=== PATIENT | male | born 1985 | race Caucasian/White ===

== ENCOUNTER 2021-05-28 10:17 | Emergency (ER) | payer SELFPAY ==
[2021-05-28 10:20] VITALS: BP 135/83; PULSE 106; RESP 16; TEMP 36.6; O2SAT 97; BMI 31.3
--- NOTE | 2021-05-28 11:00 | EDS_ITS ---
HPI History of Present Illness Chief Complaint: Headache Narrative Narrative: 36-year-old male presenting with headache. He states he has a history of migraine headache. He states he had a headache for about a week. He was initially scheduled for follow-up with his primary care doctor later today but stated that he could not wait any longer to get his headache under control. He has not had a fever, cough, chills, body aches. His states that he has been sleeping a lot. He had one episode where he was going to be nauseous on the way into the ER. Patient states he was tested for COVID-19 on Friday and this was negative. [facility] Medical History Migraine Home Medications ketorolac 10 mg PO Q6H PRN #8 tablet 10/03/16 [Rx Last Taken Unknown] ondansetron HCl [Zofran] 4 mg PO Q8H PRN #10 tab 05/28/21 [Rx Last Taken Unknown] Allergy/AdvReac Type Severity Reaction Status Date / Time amoxicillin Allergy Shortness Verified 10/03/16 20:13 of breath Penicillins [PCN] Allergy Shortness Verified 10/03/16 20:13 of breath Social History Smoking Status: Former smoker ROS ROS ED Constitutional Constitutional ED: Denies chills or fever(s) Eyes Eyes: Denies blurry vision or change in vision ENT ENT ED: Denies rhinorrhea or sore throat Cardiovascular Cardiovascular: Denies chest pain or palpitations Respiratory/Chest Respiratory/Chest: Denies cough, dyspnea or sputum Gastrointestinal Gastrointestinal: Reports nausea; Denies abdominal pain, diarrhea or vomiting Genitourinary Genitourinary ED: Denies dysuria or hematuria Musculoskeletal Musculoskeletal: Denies arthralgias, back pain, myalgias or neck pain Integumentary Denies Abrasions or rash Neurologic Neurologic: Reports headache(s); Denies paresthesias EXAM Physical Exam Const Vital Signs: 05/28/21 10:20 05/28/21 12:27 Temperature 97.8 F Temperature Source Temporal Pulse Rate 106 H Respiratory Rate 16 16 Blood Pressure 135/83 H Blood Pressure Mean 100 Pulse Ox 97 Oxygen Delivery Method Room Air Positive well nourished General Appearance ED: NAD; Negative for pallor HEENT Reports normocephalic and moist mucous membranes atraumatic Eyes PERRL and EOMs intact bilaterally Resp normal respiratory effort and clear to auscultation bilaterally Cardio regular rate and regular rhythm GI non-tender and non-distended Palpation: soft Neuro oriented x3, CN's II-XII intact bilaterally and no sensory deficits noted Sensorium / Orientation: alert Motor Exam: strength 5/5 throughout Psych mental status grossly normal Skin General Skin Exam: Negative for jaundice or pallor MDM MDM MDM Narrative Medical decision making narrative: Patient presenting with migraine headache and he states he has a history of migraines. His vital signs are stable and he is afebrile. He has no symptoms of cough, cold. He has not had a fever. His states that he has been sleeping more recently. He had a negative Covid test on Friday. Patient was given Reglan, Benadryl, Toradol and his headache did improve. His did asked me to check a Monospot which was negative. I did offer to test for COVID-19 and do a PCR and have him quarantine at home however they declined because he is almost to the quarantine timeframe. Patient counseled to continue to hydrate. He will follow-up with his primary care to ensure resolution. Impression: 1. Headache 2. Fatigue Lab Data Labs: Laboratory Results - last 24 hr 05/28/21 11:31 Monoscreen Negative Discharge Plan Triage Chief Complaint: Headache ED Provider: Yann Lanza Dx/Rx/DC Orders Instructions: ED Headache Unspecified Prescriptions: New ondansetron HCl [Zofran] 4 mg tablet 4 mg PO Q8H PRN (Reason: nausea and vomiting) Qty: 10 RF: 0 No Action ketorolac 10 MG tablet 10 mg PO Q6H PRN (Reason: Headache) Qty: 8 RF: 0 Primary Care Provider: Elenita Nielson Referrals: Elenita Nielson, [facility] [Primary Care Provider] - Disposition Disposition: Home, Self Care
[2021-05-28] MEDS: DiphenhydrAMINE 50 MG/ML Syringe 25 MG IV (11:09)
[2021-05-28] MEDS: Ketorolac 15 MG/ML Vial IV (11:09)
[2021-05-28] MEDS: Metoclopramide 10 MG/2 ML Vial IV (11:10)
[2021-05-28 12:14] LABS: Internal QC Validated? YES +Cl - CLEAR BKGD; Monotest Negative (Negative)
[2021-05-28 12:27] VITALS: RESP 16
[2021-05-28 12:50] VITALS: BP 129/87
== END 2021-05-28 12:55 | disposition home or self-care (01) ==
PROVIDERS: Emergency Provider Student in an Organized Health Care Education/Training Program; PCP Nurse Practitioner Family
DX: R51.9 Headache, unspecified (principal); R53.1 Weakness; Z87.891 Personal history of nicotine dependence
CPT/HCPCS: 86308; 96374; 96375; 99282; J7030; A4216